=== PATIENT | male | born 1945 | race Caucasian/White ===

== ENCOUNTER → 2017-11-07 13:18 | Outpatient (CLI) | payer MEDICARE, OTHER, SELFPAY | PROVIDERS: PCP Physician Assistant; Visit Provider Urology | DX: C61 Malignant neoplasm of prostate (principal) | CPT/HCPCS: 36415; 84153 ==

== ENCOUNTER → 2018-02-26 15:26 | Outpatient (CLI) | payer MEDICARE, OTHER, SELFPAY ==
[2018-02-26 16:11] LABS: Estimated Glomerular Filt Rate > 60.0 mL/min (>60)
== END ==
PROVIDERS: PCP Internal Medicine; Visit Provider Otolaryngology
DX: H90.5 Unspecified sensorineural hearing loss (principal)
CPT/HCPCS: 36415; 82565

== ENCOUNTER → 2018-02-27 13:43 | Outpatient (CLI) | payer MEDICARE, OTHER, SELFPAY ==
--- NOTE | 2018-02-27 | DI.MRI.S_ITS ---
PROCEDURE: MR BRAIN (IAC) WWO CON INDICATIONS: ASYMMETRIC SENSORINEURAL HEARING LOSS TECHNIQUE: Noncontrast sagittal T1 spin echo, axial FLAIR, axial gradient echo, axial diffusion and ADC through the brain. Axial thin-slice 3D CISS, coronal TruFISP, axial T1 spin echo with fat saturation through the internal auditory canals. After the administration of contrast, thin slice axial and coronal T1 spin echo with fat saturation through the internal auditory canals, and axial T1 spin echo with fat saturation through the brain. COMPARISON: None. FINDINGS: Image quality: Excellent. Cerebellopontine angles: No cerebellopontine angle masses. Inner ear structures appear normally formed. No suspicious enhancement in the internal auditory canal or along the course of the 7th cranial nerve. CSF spaces: Ventricles are normal in shape. Mild, diffuse prominence of CSF space is noted. No extra-axial fluid collections. Basal cisterns are patent. Brain: No intracranial bleeds or mass effects. Barr-white matter interface is intact. No abnormal intracranial enhancement. Diffusion weighted images demonstrate no acute ischemic insults. A few, scattered, punctate foci of increased T2 signal noted in the periventricular and subcortical white matter tracts. Brainstem appears normal. Normal intravascular flow voids are present. Skull and face: Calvarial marrow signal is normal. Orbits appear normal. Sinuses: Sinuses and mastoids are clear. IMPRESSION: 1. No evidence of vestibular schwannoma. 2. Mild, diffuse cerebral volume loss. 3. Mild periventricular and subcortical white matter chronic microvascular ischemic changes. 4. No abnormal intracranial mass or suspicious postcontrast enhancement Dictated by: Paulette Burt MD, PhD on 02/27/2018 at 14:52 Approved by: Paulette Burt MD, PhD on 02/27/2018 at 15:15
== END ==
PROVIDERS: PCP Internal Medicine; Visit Provider Otolaryngology
DX: H90.5 Unspecified sensorineural hearing loss (principal)
CPT/HCPCS: 70553; A9579

== ENCOUNTER → 2018-03-18 13:12 | Outpatient (CLI) | payer MEDICARE, OTHER, SELFPAY ==
[2018-03-18 14:50] LABS: Free T3, Triiodothyronine Free 3.53 pg/mL (2.77-5.27); Free T4, Direct Thyroxine 1.31 ng/dL (0.78-2.19)
[2018-03-18 15:03] LABS: Thyroid Stimulating Hormone 0.15 uIU/mL (0.47-4.68)
[2018-03-18 15:42] LABS: BUN Creatinine Ratio 23.3 (6-22); Blood Urea Nitrogen 21 mg/dL (9-20); Carbon Dioxide 27 mmol/L (22-32); Chloride 103 mmol/L (98-107); Estimated Glomerular Filt Rate > 60.0 mL/min (>60); Glucose 93 mg/dL (80-110); HEMOLYSIS < 15 (0-50); Potassium 4.3 mmol/L (3.4-5.1); Sodium 141 mmol/L (137-145)
== END ==
PROVIDERS: PCP Internal Medicine; Visit Provider Internal Medicine
DX: E03.9 Hypothyroidism, unspecified (principal); Q61.00 Congenital renal cyst, unspecified; M15.0 Primary generalized (osteo)arthritis
CPT/HCPCS: 36415; 80048; 84439; 84443; 84481

== ENCOUNTER 2018-04-04 16:07 | Emergency (ER) | payer MEDICARE, OTHER, SELFPAY ==
[2018-04-04 16:14] VITALS: BP 154/79; PULSE 70; RESP 16; TEMP 37; O2SAT 100; BMI 21.7
--- NOTE | 2018-04-04 16:29 | PC.NURSE ---
tenderness with palpation, no edema or echymosis noted, breath sound clear thru out. skin warm dry pink
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
[2018-04-04 19:21] VITALS: BP 140/80; PULSE 70; RESP 14
== END 2018-04-04 19:23 | disposition home or self-care (01) ==
PROVIDERS: Emergency Provider Emergency Medicine; PCP Internal Medicine
DX: S22.39XA Fracture of one rib, unspecified side, initial encounter for closed fracture (principal); V18.2XXA Unspecified pedal cyclist injured in noncollision transport accident in nontraffic accident, initial encounter
CPT/HCPCS: 71046; 99282; 99283

== ENCOUNTER → 2018-06-04 11:40 | Outpatient (CLI) | payer MEDICARE, OTHER, SELFPAY | PROVIDERS: PCP Internal Medicine; Visit Provider Urology | DX: C61 Malignant neoplasm of prostate (principal) | CPT/HCPCS: 36415; 84153 ==

== ENCOUNTER → 2018-11-21 09:08 | Outpatient (CLI) | payer MEDICARE, OTHER, SELFPAY ==
[2018-11-21 12:05] LABS: Prostate Specific Antigen 7.14 ng/mL (0.10-4.00)
== END ==
PROVIDERS: PCP Internal Medicine; Visit Provider Urology
DX: C61 Malignant neoplasm of prostate (principal)
CPT/HCPCS: 36415; 84153

== ENCOUNTER → 2019-03-28 07:30 | Outpatient (CLI) | payer MEDICARE, OTHER, SELFPAY ==
[2019-03-28 08:18] LABS: Cholesterol 164 mg/dL (140-199); HDL Cholesterol 64 mg/dL (40-60); LDL Cholesterol Calculated 90 mg/dL (<100); Triglycerides 52 mg/dL (35-150)
[2019-03-28 09:10] LABS: TSH w/ Reflex to FT4 0.24 uIU/mL (0.47-4.68)
[2019-03-28 09:47] LABS: Free T4, Direct Thyroxine 1.67 ng/dL (0.78-2.19)
== END ==
PROVIDERS: PCP Internal Medicine; Visit Provider Internal Medicine
DX: Z00.00 Encounter for general adult medical examination without abnormal findings (principal); E03.9 Hypothyroidism, unspecified; Q61.00 Congenital renal cyst, unspecified
CPT/HCPCS: 36415; 80061; 84439; 84443

== ENCOUNTER → 2019-06-09 12:44 | Outpatient (CLI) | payer MEDICARE, OTHER, SELFPAY ==
[2019-06-09 15:46] LABS: Prostate Specific Antigen 7.04 ng/mL (0.10-4.00)
== END ==
PROVIDERS: PCP Internal Medicine; Visit Provider Urology
DX: C61 Malignant neoplasm of prostate (principal)
CPT/HCPCS: 36415; 84153